=== PATIENT | female | born 1945 | race Caucasian/White ===

== ENCOUNTER 2020-11-10 13:12 | Outpatient (CLI) | payer MEDICARE, BC | END 2020-11-10 13:13 | disposition home or self-care (01) | LOC: CSHMRI 13:12 | PROVIDERS: ATTEND Orthopaedic Surgery | DX: S09.90XD Unspecified injury of head, subsequent encounter (principal) | CPT/HCPCS: 70551 ==

== ENCOUNTER 2025-06-19 10:15 | Outpatient (CLI) | payer MEDICARE, BC | END 2025-06-19 10:16 | disposition home or self-care (01) | LOC: CSHMAMMO 10:15 | PROVIDERS: ATTEND Specialist | DX: Z12.31 Encounter for screening mammogram for malignant neoplasm of breast (principal); Z08 Encounter for follow-up examination after completed treatment for malignant neoplasm; Z85.3 Personal history of malignant neoplasm of breast | CPT/HCPCS: 77063; 77067 ==